=== PATIENT | female | born 1980 | race Caucasian/White ===

== ENCOUNTER 2018-02-16 14:18 | Emergency (ER) | payer OTHER ==
[~2018-02-16] VITALS: Ht 177.8 cm; Wt 109.1 kg
[~2018-02-16 14:18] MED LIST: BUSPIRONE HCL7.5 MG PO; INDERAL 10MG10 MG PO; PROTONIX 40MG T40 MG PO; PROZAC60 MG; ZOLOFT 25MG25 MG PO; birth control
[2018-02-16] MEDS ORDERED: CELEBREX 200MG200 MG PO (14:28)
[2018-02-16 14:30] VITALS: TEMP 97.8
[2018-02-16 15:09] LABS: BASO % 0.5 % (0.0-2.0); EOS # 0.1 (0.0-0.7); EOS % 1.7 % (0-4.0); HEMATOCRIT 37.2 % (37.0-47.0); HEMOGLOBIN 12.6 g/dl (12.5-16.0); LYMPH # 3.2 (1.2-3.4); LYMPH % 39.8 % (20.0-51.0); MEAN CELL VOLUME 87 fl (80.0-100.0); MEAN CORPUSCULAR HEMOGLOBIN 29 pg (27.0-31.0); MEAN CORPUSCULAR HGB CONC 34 g/dl (33.0-37.0); MEAN PLATELET VOLUME 10.1 fl (7.4-10.4); MONO # 0.6 (0.1-0.6); MONO % 7.9 % (1.7-9.3); PLATELET COUNT 271 K/mm3 (130-400)
[2018-02-16 15:19] LABS: ALANINE AMINOTRANSFERASE 36 U/L (9-52); ALKALINE PHOSPHATASE 96 U/L (50-136); ANION GAP 12 mmol/L (7-16); AST,SGOT 29 U/L (15-37); BILIRUBIN,TOTAL 0.2 mg/dL (0.0-1.0); BLOOD UREA NITROGEN 13 mg/dL (7-17); C-REACTIVE PROTEIN 1.3 mg/dL (0.0-0.9); CALCIUM 9.1 mg/dL (8.4-10.2); CARBON DIOXIDE 25 mmol/L (22-30); CHLORIDE 104 mmol/L (98-107); CREATININE, serum 1.28 mg/dL (0.52-1.25); GLUCOSE 92 mg/dL (74-106); LIPASE 69 U/L (23-300); POTASSIUM 4.2 mmol/L (3.4-5.0); SODIUM 141 mmol/L (137-145); TOTAL PROTEIN 7.4 gm/dL (6.4-8.2)
[2018-02-16 15:31] LABS: TROPONIN-I < 0.012 ng/mL (0.000-0.034)
[2018-02-16 16:06] LABS: COLLECTION METHOD CLEAN CATCH
[2018-02-16 16:13] LABS: PH 7 (5-8); SQUAMOUS EPITHELIAL 0-2 /hpf; URINE APPEARANCE Clear; URINE BACTERIA Rare /hpf; URINE BILIRUBIN Negative (NEGATIVE); URINE BLOOD Negative (NEGATIVE); URINE COLOR Straw; URINE GLUCOSE Negative (NEGATIVE); URINE KETONE Negative (NEGATIVE); URINE LEUKOCYTE ESTERASE Negative (NEGATIVE); URINE NITRATE Negative (NEGATIVE); URINE PROTEIN(semi-quant) Negative (NEGATIVE); URINE RBC 0-2 /hpf; URINE UROBILINOGEN Negative (NEGATIVE)
[2018-02-16 17:30] VITALS: BP 112/76; PULSE 71
== END 2018-02-16 17:45 | disposition home or self-care (01) ==
LOC: COL.ER 14:18
PROVIDERS: Emergency Medicine
DX: R06.00 Dyspnea, unspecified (principal); R07.89 Other chest pain; R60.9 Edema, unspecified; T39.395A Adverse effect of other nonsteroidal anti-inflammatory drugs [NSAID], initial encounter; F32.9 Major depressive disorder, single episode, unspecified; G43.909 Migraine, unspecified, not intractable, without status migrainosus
CPT/HCPCS: J1100

== ENCOUNTER 2018-04-18 20:11 | Emergency (ER) | payer OTHER ==
[~2018-04-18] VITALS: Ht 177.8 cm; Wt 113.6 kg
[~2018-04-18 20:11] MED LIST changes: +CELEBREX 200MG200 MG PO
[2018-04-18 20:12] VITALS: BP 126/75; TEMP 98.5
[2018-04-18] MEDS ORDERED: NEURONTIN300 MG/CAP PO (20:27)
[2018-04-18] MEDS ORDERED: ZYRTEC 10MG10 MG PO (20:27)
[2018-04-18] MEDS ORDERED: PREDNISONE10 MG PO ×2 (20:31)
[2018-04-18 20:53] VITALS: PULSE 77
== END 2018-04-18 20:53 | disposition home or self-care (01) ==
LOC: COL.ER 20:11
DX: H65.91 Unspecified nonsuppurative otitis media, right ear (principal); F32.9 Major depressive disorder, single episode, unspecified; F41.9 Anxiety disorder, unspecified; M79.7 Fibromyalgia; F17.210 Nicotine dependence, cigarettes, uncomplicated
CPT/HCPCS: J7512

== ENCOUNTER 2018-05-27 15:17 | Emergency (ER) | payer OTHER ==
[~2018-05-27] VITALS: Ht 177.8 cm; Wt 113.6 kg
[~2018-05-27 15:17] MED LIST changes: +NEURONTIN300 MG/CAP PO; +PREDNISONE10 MG PO; +ZYRTEC 10MG10 MG PO
[2018-05-27 15:26] VITALS: BP 128/77; TEMP 98.8
[2018-05-27 17:04] VITALS: PULSE 93
== END 2018-05-27 17:08 | disposition home or self-care (01) ==
LOC: COL.ER 15:17
DX: S50.12XA Contusion of left forearm, initial encounter (principal); M79.7 Fibromyalgia; F41.9 Anxiety disorder, unspecified; F32.9 Major depressive disorder, single episode, unspecified; G43.909 Migraine, unspecified, not intractable, without status migrainosus; W54.0XXA Bitten by dog, initial encounter

== ENCOUNTER 2018-06-01 08:45 | Outpatient (RCR) | payer OTHER | END 2018-06-28 10:37 | disposition home or self-care (01) | LOC: WSPT 08:45 | DX: M79.7 Fibromyalgia (principal) ==

== ENCOUNTER 2018-09-24 17:55 | Emergency (ER) | payer OTHER ==
[~2018-09-24] VITALS: Ht 177.8 cm; Wt 118.2 kg
[~2018-09-24 17:55] MED LIST changes: +ZOLOFT 100MG100 MG PO; -ZOLOFT 25MG25 MG PO
[2018-09-24] MEDS ORDERED: PRINIVIL10 MG PO (18:35)
[2018-09-24] MEDS ORDERED: SINGULAIR 110 MG/TAB PO (18:35)
[2018-09-24 19:06] LABS: COLLECTION METHOD CLEAN CATCH
[2018-09-24 19:12] LABS: MUCOUS Present /lpf; PH 7 (5-8); URINE APPEARANCE Clear; URINE BACTERIA Rare /hpf; URINE BILIRUBIN Negative (NEGATIVE); URINE BLOOD Negative (NEGATIVE); URINE COLOR Yellow; URINE GLUCOSE Negative (NEGATIVE); URINE KETONE Negative (NEGATIVE); URINE LEUKOCYTE ESTERASE Negative (NEGATIVE); URINE NITRATE Negative (NEGATIVE); URINE PROTEIN(semi-quant) Negative (NEGATIVE); URINE RBC 0-2 /hpf; URINE UROBILINOGEN Negative (NEGATIVE)
[2018-09-24 19:48] VITALS: BP 101/57; PULSE 115; TEMP 98.4
[2018-09-24] MEDS ORDERED: AMOXICILLIN 8751 TAB PO (20:11)
[2018-09-24] MEDS ORDERED: DIFLUCAN 100MG100 MG PO (22:56)
== END 2018-09-24 20:20 | disposition home or self-care (01) ==
LOC: COL.ER 17:55
PROVIDERS: Emergency Medicine
DX: J01.90 Acute sinusitis, unspecified (principal); R50.9 Fever, unspecified
CPT/HCPCS: J0780; J1200; J1885

== ENCOUNTER 2019-10-17 17:37 | Emergency (ER) | payer OTHER ==
[~2019-10-17] VITALS: Ht 177.8 cm; Wt 111.4 kg
[~2019-10-17 17:37] MED LIST changes: +AMOXICILLIN 8751 TAB PO; +DIFLUCAN 100MG100 MG PO; +PRINIVIL10 MG PO; +SINGULAIR 110 MG/TAB PO
[2019-10-17 20:33] VITALS: BP 122/68; PULSE 72; TEMP 97.6
== END 2019-10-17 20:35 | disposition home or self-care (01) ==
LOC: COL.ER 17:37
DX: G43.909 Migraine, unspecified, not intractable, without status migrainosus (principal); I10 Essential (primary) hypertension; F32.9 Major depressive disorder, single episode, unspecified
CPT/HCPCS: J1885; J2550

== ENCOUNTER 2020-03-13 11:31 | Emergency (ER) | payer OTHER ==
[~2020-03-13] VITALS: Ht 177.8 cm; Wt 109.1 kg
[2020-03-13 11:48] VITALS: BP 115/77; TEMP 98.2
[2020-03-13 12:35] LABS: COLLECTION METHOD CLEAN CATCH
[2020-03-13 12:39] LABS: BASO # 0.1 (0.0-0.2); BASO % 0.7 % (0.0-2.0); EOS # 0.1 (0.0-0.7); EOS % 1.3 % (0-4.0); GRAN # 5.4 (1.4-6.5); GRAN % 64.8 % (42.2-75.2); HEMATOCRIT 41.2 % (37.0-47.0); HEMOGLOBIN 13.6 g/dl (12.5-16.0); LYMPH # 2.3 (1.2-3.4); LYMPH % 27.4 % (20.0-51.0); MEAN CELL VOLUME 88 fl (80.0-100.0); MEAN CORPUSCULAR HEMOGLOBIN 29 pg (27.0-31.0); MEAN CORPUSCULAR HGB CONC 33 g/dl (33.0-37.0); MEAN PLATELET VOLUME 10.2 fl (7.4-10.4); MONO # 0.5 (0.1-0.6); MONO % 5.6 % (1.7-9.3); PLATELET COUNT 284 K/mm3 (130-400); RED BLOOD COUNT 4.68 M/mm3 (4.10-5.30)
[2020-03-13 12:52] LABS: ALBUMIN 4.4 gm/dL (3.5-5.0); BILIRUBIN,TOTAL 0.5 mg/dL (0.0-1.0); CALCIUM 8.8 mg/dL (8.4-10.2); CREATININE, serum 0.7 (0.52-1.25); POTASSIUM 3.9 mmol/L (3.4-5.0); TOTAL PROTEIN 7.8 gm/dL (6.4-8.2)
[2020-03-13 13:14] LABS: AMORPHOUS CRYSTAL Present /uL; MUCOUS Present /lpf; PH 9 (5-8); URINE APPEARANCE Cloudy; URINE BACTERIA Rare /hpf; URINE BILIRUBIN Negative (NEGATIVE); URINE BLOOD Negative (NEGATIVE); URINE COLOR Yellow; URINE GLUCOSE Negative (NEGATIVE); URINE KETONE Negative (NEGATIVE); URINE LEUKOCYTE ESTERASE Negative (NEGATIVE); URINE NITRATE Negative (NEGATIVE); URINE PROTEIN(semi-quant) 1+ (NEGATIVE); URINE RBC 0-2 /hpf; URINE UROBILINOGEN Negative (NEGATIVE)
[2020-03-13] MEDS ORDERED: ZOFRAN 4MG T4 MG/TAB PO (13:52)
[2020-03-13 14:13] VITALS: PULSE 99
== END 2020-03-13 14:13 | disposition home or self-care (01) ==
LOC: COL.ER 11:31
PROVIDERS: Nurse Practitioner Primary Care
DX: R42 Dizziness and giddiness (principal); F41.9 Anxiety disorder, unspecified; G43.909 Migraine, unspecified, not intractable, without status migrainosus; F32.9 Major depressive disorder, single episode, unspecified; Z90.89 Acquired absence of other organs
CPT/HCPCS: J0780; J7030